=== PATIENT | male | born 1960 | race African-American/Black ===

== ENCOUNTER 2022-01-15 07:38 | Inpatient (IN) | payer MEDICARE, MEDICAID ==
[~2022-01-15] VITALS: Ht 185.4 cm; Wt 113.6 kg
[2022-01-15] VITALS (10 sets, daily range): BP systolic 133–194; BP diastolic 81–95
[~2022-01-15 07:38] MED LIST: LISI10TA27 PO
[2022-01-15 08:34] LABS: BASOPHILS # (AUTO) 0.1 X10'3 (0-0.2); BASOPHILS % (AUTO) 0.8 % (0-1); EOSINOPHILS % (AUTO) 0.3 % (0-6); HEMATOCRIT 43.5 % (42.0-52.0); HEMOGLOBIN 14.3 g/dl (14.0-17.9); LYMPHOCYTES # (AUTO) 1.4 X10'3 (1.1-4.8); LYMPHOCYTES % (AUTO) 13.2 % (21-51); MEAN CORPUSCULAR HGB CONC 32.9 g/dL (33.0-36.5); MEAN CORPUSCULAR VOLUME 82.3 FL (78-98); MEAN PLATELET VOLUME 8.6 FL (7.4-10.4); MONOCYTES # (AUTO) 0.8 X10'3 (0-0.9); MONOCYTES % (AUTO) 7.8 % (2-12); NEUTROPHILS # (AUTO) 8.4 X10'3 (1.8-7.7); NEUTROPHILS % (AUTO) 77.9 % (42-75); PLATELET COUNT 326 X10'3 (140-440); RED BLOOD COUNT 5.29 X10'6 (4.70-6.10); RED CELL DISTRIBUTION WIDTH 14.9 % (11.5-14.5); WHITE BLOOD COUNT 10.8 X10'3 (4.5-11.0)
[2022-01-15 08:47] LABS: ALANINE AMINOTRANSFERASE 35 U/L (12-78); ALBUMIN 3.9 G/DL (3.4-5.0); ALBUMIN/GLOBULIN RATIO 0.8 (1.1-1.5); ALKALINE PHOSPHATASE 191 IU/L (46-116); ANION GAP 10 (8-16); ASPARTATE AMINO TRANSFERASE 72 U/L (10-37); BILIRUBIN,TOTAL 0.6 MG/DL (0.1-1.0); BLOOD UREA NITROGEN 12 MG/DL (7-18); BUN/CREATININE RATIO 10.1 (5.4-32.0); CALCIUM 9.3 MG/DL (8.5-10.1); CHLORIDE 100 MMOL/L (99-107); CREATININE 1.19 MG/DL (0.60-1.10); GLUCOSE 153 MG/DL (70-104); POTASSIUM 4.4 MMOL/L (3.5-5.1); SODIUM 136 MMOL/L (135-145); TOTAL CARBON DIOXIDE 26.1 MMOL/L (24-32); TOTAL PROTEIN 8.7 G/DL (6.4-8.2); eGFR 75 ML/MIN
[2022-01-15] MEDS ORDERED: nitroGLYCERIN-Tridil 50MG/D5W 250 ML IV PRN ×2 (08:55→08:59)
[2022-01-15] MEDS ORDERED: aspirin 81mg tab.chew PO ONE (08:55)
[2022-01-15] MEDS ORDERED: heparin 10,000 units/1 ML INJ IV PRN (10:45)
[2022-01-15] MEDS ORDERED: heparin 25,000 UNIT/250ml bag 250 ML IV SCH (10:45)
[2022-01-15] MEDS ORDERED: heparin 10,000 units/1 ML INJ IV ONE ×2 (10:45→10:50)
[2022-01-15] MEDS ORDERED: potassium Cl 20 mEq SR tablet PO PRN ×2 (10:50)
[2022-01-15] MEDS ORDERED: potassium CL 10mEq/100ml bag 100 ML IV PRN (10:50)
[2022-01-15] MEDS ORDERED: normal saline 1000ml 1,000 ML IV SCH (10:50)
[2022-01-15] MEDS ORDERED: magnesium 2GM in 50ml NS 50 ML IV PRN (10:50)
[2022-01-15] MEDS ORDERED: ondansetron/PF 4mg/2ml inj IV PRN ×2 (10:50→12:40)
[2022-01-15] MEDS ORDERED: acetaminophen 325mg tablet PO PRN (10:50)
[2022-01-15] MEDS ORDERED: magnesium 4gm in 100ml NS 100 ML IV PRN (10:50)
[2022-01-15] MEDS ORDERED: magnesium hydroxide 30ml (MOM) UD suspension PO PRN (10:50)
[2022-01-15] MEDS ORDERED: magnesium Cl slow-release 64mg tablet PO PRN (10:50)
[2022-01-15] MEDS ORDERED: LIDOcaine 1% (10mg/ml)w/preservative inj. 20ml MDV ONE (11:05)
[2022-01-15] MEDS ORDERED: iohexol 350 MG/ML 50ML vial IV ONE ×2 (11:05→11:34)
[2022-01-15] MEDS ORDERED: iohexol 350MG/ML 100ml bottle IV ONE (11:05)
[2022-01-15] MEDS ORDERED: midazolam 1 mg/ML 2ml injection ONE (11:05)
[2022-01-15] MEDS ORDERED: fentaNYL/PF 50MCG/1 ML 2ML syringe ONE (11:05)
[2022-01-15 11:12] LABS: MAGNESIUM 1.9 MG/DL (1.5-2.4)
[2022-01-15 11:26] LABS: APTT 30 SECONDS (22-32)
[2022-01-15] MEDS ORDERED: proCHLORperazine 10 MG/2 ml inj IV PRN (12:40)
[2022-01-15] MEDS ORDERED: nitroGLYCERIN 0.4mg SUBLingual tab SL PRN (12:40)
[2022-01-15] MEDS ORDERED: OXAZEpam 15mg capsule PO PRN (12:40)
[2022-01-15] MEDS ORDERED: HYDROcodone/acetaminophen 5mg/325mg tablet PO PRN (12:40)
--- NOTE | 2022-01-15 12:45 | NUR ---
Report received from [employer] [employer], patient admitted to room 3017B from ED/[facility]. Patient AXOX3 no distress noted. Lung sound clear to auscultate all lobes bilateral, RA. abd soft non-tender, bowel sound active all lobes. animal laboratory technician post procedure, educated patient to lie flat on bed to prevent bleeding, patient verbalized understanding. pressure drsg to right groin dry and intact. paient c/o back pain will check the EMAR for prn pain medications. Call light within reach, safety measure maintain.
[2022-01-15] MEDS ORDERED: amLODIPine 5mg tablet PO ONE (12:55)
[2022-01-15] MEDS ORDERED: AMLO10TA13 PO (12:59)
[2022-01-15] MEDS ORDERED: HYDR-3972 PO (12:59)
[2022-01-15] MEDS ORDERED: CYCL10TA26 PO (12:59)
[2022-01-15] MEDS ORDERED: ZOLP5TAB8 PO (12:59)
[2022-01-15] MEDS ORDERED: CLON0.1T PO (12:59)
[2022-01-15] MEDS ORDERED: PROM25TA14 PO (12:59)
[2022-01-15] MEDS ORDERED: TEST200V33 IM (12:59)
[2022-01-15] MEDS ORDERED: METH-603 PO (12:59)
[2022-01-15] MEDS ORDERED: HYDROcodone/acetaminophen 10/325mg tab PO PRN (13:20)
[2022-01-15] MEDS: clopidogrel 75mg tablet PO SCH (13:43)
[2022-01-15] MEDS: HYDROcodone/acetaminophen 10/325mg tab PO PRN ×2 (13:45→21:17)
[2022-01-15] MEDS: losartan 50mg tablet PO SCH (13:46)
--- NOTE | 2022-01-15 14:27 | NUR ---
Dr. Munguia notified of patient troponin level 4388.
--- NOTE | 2022-01-15 15:48 | NUR ---
patient non compliant, attempted to get out of bed several times, patient re educated by several nursing staff of bleeding risk and need to lie flat for 2-6 hours. educated patient to used call light for escrow assistant.
[2022-01-15] MEDS: cyclobenzaprine 10mg tablet PO SCH ×2 (17:27→23:48)
--- NOTE | 2022-01-15 17:45 | NUR ---
Patient continue on nitro drip, well tolerated. denies any chest pain at time.
--- NOTE | 2022-01-15 18:58 | NUR ---
Received pt on Nitroglycerin drip, BP stable. Noted Heparin orders still on JAN, will sent a message to call center rn to d/c orders .
[2022-01-15] MEDS: cloNIDine 0.1 mg tablet PO SCH (19:48)
[2022-01-15] MEDS: docusate sod 100mg capsule PO SCH (19:48)
[2022-01-15] MEDS: K and/or MAG REPLACEMENT MC SCH (19:49)
[2022-01-15] MEDS: HYDROmorphone/PF 0.2 MG/ML SYRINGE IV PRN (20:50)
[2022-01-15] MEDS ORDERED: hydrALAZINE 25 MG tablet PO PRN (21:50)
[2022-01-15] MEDS: mag hydrox/Alum hydrox/simeth 30ml oral suspension PO PRN (21:56)
[2022-01-16] VITALS (11 sets, daily range): BP systolic 126–162; BP diastolic 74–103
[2022-01-16] MEDS: HYDROmorphone/PF 0.2 MG/ML SYRINGE IV PRN ×2 (00:41→06:06)
[2022-01-16 06:37] LABS: BASOPHILS % (AUTO) 0.3 % (0-1); EOSINOPHILS % (AUTO) 0 % (0-6); HEMATOCRIT 40.9 % (42.0-52.0); HEMOGLOBIN 13.3 g/dl (14.0-17.9); LYMPHOCYTES # (AUTO) 1.4 X10'3 (1.1-4.8); LYMPHOCYTES % (AUTO) 10.1 % (21-51); MEAN CORPUSCULAR HEMOGLOBIN 26.8 PG (27.0-31.0); MEAN CORPUSCULAR HGB CONC 32.4 g/dL (33.0-36.5); MEAN CORPUSCULAR VOLUME 82.7 FL (78-98); MEAN PLATELET VOLUME 8.9 FL (7.4-10.4); MONOCYTES # (AUTO) 1.4 X10'3 (0-0.9); MONOCYTES % (AUTO) 10.6 % (2-12); NEUTROPHILS # (AUTO) 10.7 X10'3 (1.8-7.7); PLATELET COUNT 297 X10'3 (140-440); RED BLOOD COUNT 4.95 X10'6 (4.70-6.10); RED CELL DISTRIBUTION WIDTH 14.8 % (11.5-14.5); WHITE BLOOD COUNT 13.5 X10'3 (4.5-11.0)
--- NOTE | 2022-01-16 06:39 | NUR ---
Pt continued to complain of chest pain though of the night. 0000 Dr Savage notified of his complaints, she said no other pain medicine can be added. Also informed her of the high BP of 194/95 HR 63, received order of hydralazine. WCTM
[2022-01-16 06:41] LABS: ALBUMIN 3.3 G/DL (3.4-5.0); ANION GAP 9 (8-16); BLOOD UREA NITROGEN 11 MG/DL (7-18); BUN/CREATININE RATIO 10.3 (5.4-32.0); CHLORIDE 100 MMOL/L (99-107); CREATININE 1.07 MG/DL (0.60-1.10); GLUCOSE 127 MG/DL (70-104); POTASSIUM 4.2 MMOL/L (3.5-5.1); SODIUM 135 MMOL/L (135-145); TOTAL CARBON DIOXIDE 25.9 MMOL/L (24-32); eGFR 84 ML/MIN
--- NOTE | 2022-01-16 06:44 | NUR ---
Dr Ezra redding regarding patient in room 3015A Mr Alexei Orosco have X1 episode of Afib RVR. during report patient c/o epigastric pain and used to take Dexilant. Vitals documented. Patient in bed with eyes closed, no distress noted at time, nitroglycerin drip continue.
[2022-01-16] MEDS: clopidogrel 75mg tablet PO SCH (07:58)
[2022-01-16] MEDS: docusate sod 100mg capsule PO SCH ×2 (07:58→19:19)
[2022-01-16] MEDS: losartan 50mg tablet PO SCH (07:59)
[2022-01-16] MEDS ORDERED: non-formulary drug (Amlodipine Besylate 1 TAB) PO SCH (08:00)
[2022-01-16] MEDS: amLODIPine 5mg tablet PO SCH (08:00)
[2022-01-16] MEDS: atorvastatin 20mg tablet PO SCH (08:00)
[2022-01-16] MEDS: K and/or MAG REPLACEMENT MC SCH ×2 (08:00→20:00)
[2022-01-16] MEDS: aspirin 81mg, enteric-coated 1 TAB TABLET.DR PO SCH (08:01)
[2022-01-16] MEDS: cyclobenzaprine 10mg tablet PO SCH ×3 (08:01→23:17)
[2022-01-16] MEDS: methadone 10mg tablet PO SCH (08:01)
[2022-01-16] MEDS: mag hydrox/Alum hydrox/simeth 30ml oral suspension PO PRN (08:05)
[2022-01-16] MEDS ORDERED: heparin 10,000 units/1 ML INJ IV ONE (09:20)
--- NOTE | 2022-01-16 09:26 | NUR ---
NEW ORDER RECEIVED FROM DR. HIRSCH TO START PATIENT ON HEPARIN DRIP, DECREASE NITROGLYCERIN DRIP TO 5 MCG.
[2022-01-16] MEDS: heparin 25,000 UNIT/250ml bag 250 ML IV SCH ×2 (10:39→23:55)
--- NOTE | 2022-01-16 13:10 | NUR ---
spoke to Dr. Munguia regarding patient HR went up to 190's and fluctuated to 50's, patient denies any discomfort at time, MD will follow up.
[2022-01-16] MEDS ORDERED: ondansetron 4mg rapidly disintigrating tab PO PRN (13:35)
[2022-01-16] MEDS ORDERED: amiodarone 150mg/dext, iso-os 100 ML IV ONE (13:50)
[2022-01-16] MEDS ORDERED: metoprolol tartrate 1mg/ml inj IV ONE (14:00)
--- NOTE | 2022-01-16 14:00 | NUR ---
new order received from Dr Munguia for nitroglycerine patch 0.4 mg, new order noted for amiodarone drip, nitroglycerine stop.
[2022-01-16] MEDS: amiodarone/D5 360MG/200ML BAG 200 ML IV SCH ×3 (16:06→22:00)
--- NOTE | 2022-01-16 17:50 | NUR ---
Patient continue on heparin and amiodarone drip, denies any discomfort at time. call light within reach.
[2022-01-16] MEDS: cloNIDine 0.1 mg tablet PO SCH (20:36)
[2022-01-16] MEDS: heparin 10,000 units/1 ML INJ IV PRN (23:51)
--- NOTE | 2022-01-17 00:59 | NUR ---
61-yo male, admitted 01/15/2022, day 2 of hospitalization, admitting DX NSTEMI, full code, allergies to Codeine. Pt came to the emergency room with a complaint of chest pain, patient says pain started 3 days ago and present off and on on the left side of the chest, patient says he has shortness of breath from last 2 days, patient also complains of nausea and vomiting associated with it. Patient evaluated in the ER and had elevated troponin of 4791, Dr. 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 Patient has a history of high blood pressure and he is noncompliant with taking his medications for blood pressure as per patient. Patient has no abdominal pain no diarrhea no dysuria no polyuria no hematuria Currently, Pt in in PCU room 3017-B, Afebrile, AAO times 4, moves all extremities, follows all commands. HR 62, SR / AFIB at times, BP 128/88, generalized +1edema, good pulses. Amiodarone infusing at .5mg/min (16.16 ml's hr), and Cardiac heparin infusing at 1100 units/hr (11 ml's/hr). PTT closely monitored q 6 hours. IVF infusing via Right forearm and left forearm. RR 16-20 non labored, PO 98% RA, Breath sounds, diminished, equal symmetrical. Hypoactive bowel sounds, soft, rounds, obese abdomen, Cardiac diet well tolerated. No BM. ?o epigastric discomfort for time to time. Voids freely, skin intact. Pt instructed to call for asst prior to getting up, pt states he understands, call light in patients reach. Pt remains safe, continue to monitor. Addendum: 01/17/22 at 0227 by Suleiman Arredondo RN ingot buggy operator #[id number]
[2022-01-17 02:00] VITALS: BP 145/82
[2022-01-17] MEDS: amiodarone/D5 360MG/200ML BAG 200 ML IV SCH ×3 (05:14→20:00)
[2022-01-17 06:00] VITALS: BP 141/77
[2022-01-17 06:18] LABS: BASOPHILS # (AUTO) 0.1 X10'3 (0-0.2); BASOPHILS % (AUTO) 0.8 % (0-1); EOSINOPHILS % (AUTO) 0.4 % (0-6); HEMATOCRIT 40.7 % (42.0-52.0); HEMOGLOBIN 13.4 g/dl (14.0-17.9); LYMPHOCYTES # (AUTO) 2.1 X10'3 (1.1-4.8); LYMPHOCYTES % (AUTO) 19.8 % (21-51); MEAN CORPUSCULAR HEMOGLOBIN 27.3 PG (27.0-31.0); MEAN CORPUSCULAR VOLUME 82.6 FL (78-98); MEAN PLATELET VOLUME 9.3 FL (7.4-10.4); MONOCYTES # (AUTO) 1.1 X10'3 (0-0.9); MONOCYTES % (AUTO) 10.5 % (2-12); NEUTROPHILS # (AUTO) 7.2 X10'3 (1.8-7.7); NEUTROPHILS % (AUTO) 68.5 % (42-75); PLATELET COUNT 307 X10'3 (140-440); RED BLOOD COUNT 4.93 X10'6 (4.70-6.10); RED CELL DISTRIBUTION WIDTH 14.6 % (11.5-14.5); WHITE BLOOD COUNT 10.5 X10'3 (4.5-11.0)
[2022-01-17 06:25] LABS: ALBUMIN 3.1 G/DL (3.4-5.0); ANION GAP 8 (8-16); BLOOD UREA NITROGEN 16 MG/DL (7-18); BUN/CREATININE RATIO 13.4 (5.4-32.0); CALCIUM 9.1 MG/DL (8.5-10.1); CHLORIDE 101 MMOL/L (99-107); CREATININE 1.19 MG/DL (0.60-1.10); GLUCOSE 101 MG/DL (70-104); POTASSIUM 3.9 MMOL/L (3.5-5.1); SODIUM 134 MMOL/L (135-145); TOTAL CARBON DIOXIDE 25.4 MMOL/L (24-32); eGFR 75 ML/MIN
[2022-01-17] MEDS: heparin 25,000 UNIT/250ml bag 250 ML IV SCH (08:20)
[2022-01-17] MEDS: heparin 10,000 units/1 ML INJ IV PRN (08:22)
[2022-01-17] MEDS: clopidogrel 75mg tablet PO SCH (08:24)
[2022-01-17] MEDS: methadone 10mg tablet PO SCH (08:24)
[2022-01-17] MEDS: docusate sod 100mg capsule PO SCH ×2 (08:24→20:04)
[2022-01-17] MEDS: losartan 50mg tablet PO SCH (08:25)
[2022-01-17] MEDS: atorvastatin 20mg tablet PO SCH (08:25)
[2022-01-17] MEDS: aspirin 81mg, enteric-coated 1 TAB TABLET.DR PO SCH (08:25)
[2022-01-17] MEDS: cyclobenzaprine 10mg tablet PO SCH ×2 (08:25→17:52)
[2022-01-17] MEDS: amLODIPine 5mg tablet PO SCH (08:25)
[2022-01-17] MEDS: nitroGLYCERIN 0.4mg/hour patch TD SCH (08:27)
[2022-01-17 11:00] VITALS: BP 148/79
[2022-01-17 14:27] LABS: CHOL/HDL RATIO 4.2 (0.00-4.99); CHOLESTEROL 129 MG/DL (0-200); HDL CHOLESTEROL 31 MG/DL (35-60); LDL CHOLESTEROL 76 MG/DL (50-100); TRIGLYCERIDES 90 MG/DL (20-135)
[2022-01-17 15:00] VITALS: BP 155/84
[2022-01-17 18:00] VITALS: BP 146/85
--- NOTE | 2022-01-17 18:30 | NUR ---
Pt sitting at the edge of bed eating dinner, denied any discomfort, medication line detached from heplock. Plan of care verbalized to pt.pt instructed to notify staff if feeling his heart beats fast., continue to monitor pt's cardiac status.
[2022-01-17] MEDS: K and/or MAG REPLACEMENT MC SCH (20:00)
[2022-01-17] MEDS: cloNIDine 0.1 mg tablet PO SCH (20:04)
[2022-01-17] MEDS: amiodarone 200mg tablet PO SCH (20:04)
[2022-01-17 22:00] VITALS: BP 141/78
[2022-01-18] MEDS: cyclobenzaprine 10mg tablet PO SCH ×2 (00:06→08:04)
[2022-01-18 02:00] VITALS: BP 128/85
[2022-01-18] MEDS: amiodarone/D5 360MG/200ML BAG 200 ML IV SCH ×2 (02:00→08:00)
[2022-01-18 06:00] VITALS: BP 129/69
[2022-01-18 06:23] LABS: ALBUMIN 2.9 G/DL (3.4-5.0); ANION GAP 8 (8-16); BLOOD UREA NITROGEN 21 MG/DL (7-18); BUN/CREATININE RATIO 15.8 (5.4-32.0); CHLORIDE 102 MMOL/L (99-107); CREATININE 1.33 MG/DL (0.60-1.10); GLUCOSE 110 MG/DL (70-104); SODIUM 136 MMOL/L (135-145); TOTAL CARBON DIOXIDE 26.2 MMOL/L (24-32); eGFR 66 ML/MIN
[2022-01-18 06:37] LABS: BASOPHILS # (AUTO) 0.1 X10'3 (0-0.2); BASOPHILS % (AUTO) 0.7 % (0-1); EOSINOPHILS # (AUTO) 0.2 X10'3 (0-0.9); EOSINOPHILS % (AUTO) 2.1 % (0-6); HEMATOCRIT 39.8 % (42.0-52.0); HEMOGLOBIN 13.2 g/dl (14.0-17.9); LYMPHOCYTES # (AUTO) 2.2 X10'3 (1.1-4.8); MEAN CORPUSCULAR HEMOGLOBIN 27.5 PG (27.0-31.0); MEAN CORPUSCULAR HGB CONC 33.2 g/dL (33.0-36.5); MEAN CORPUSCULAR VOLUME 82.8 FL (78-98); MEAN PLATELET VOLUME 8.9 FL (7.4-10.4); MONOCYTES # (AUTO) 0.8 X10'3 (0-0.9); MONOCYTES % (AUTO) 9.6 % (2-12); NEUTROPHILS % (AUTO) 60.6 % (42-75); PLATELET COUNT 320 X10'3 (140-440); RED BLOOD COUNT 4.81 X10'6 (4.70-6.10); RED CELL DISTRIBUTION WIDTH 14.8 % (11.5-14.5); WHITE BLOOD COUNT 8.3 X10'3 (4.5-11.0)
[2022-01-18] MEDS ORDERED: apixaban 5mg tablet PO SCH (08:00)
[2022-01-18] MEDS: mag hydrox/Alum hydrox/simeth 30ml oral suspension PO PRN (08:03)
[2022-01-18] MEDS: methadone 10mg tablet PO SCH (08:04)
[2022-01-18] MEDS: amiodarone 200mg tablet PO SCH (08:04)
[2022-01-18] MEDS: nitroGLYCERIN 0.4mg/hour patch TD SCH (08:04)
[2022-01-18] MEDS: aspirin 81mg, enteric-coated 1 TAB TABLET.DR PO SCH (08:04)
[2022-01-18] MEDS: amLODIPine 5mg tablet PO SCH (08:05)
[2022-01-18] MEDS: clopidogrel 75mg tablet PO SCH (08:05)
[2022-01-18] MEDS: docusate sod 100mg capsule PO SCH (08:05)
[2022-01-18] MEDS: losartan 50mg tablet PO SCH (08:06)
[2022-01-18] MEDS: atorvastatin 20mg tablet PO SCH (08:06)
[2022-01-18] MEDS ORDERED: CARV3.12 PO ×2 (10:48)
[2022-01-18] MEDS ORDERED: AMIO200T67 PO (10:48)
[2022-01-18] MEDS ORDERED: CLOP75TA34 PO (10:48)
[2022-01-18] MEDS ORDERED: LOSA50TA64 PO (10:48)
[2022-01-18] MEDS ORDERED: ATOR20TA66 PO (10:48)
[2022-01-18 11:00] VITALS: BP 123/74
--- NOTE | 2022-01-18 11:53 | NUR ---
PAGER ID: [phone] MESSAGE: CAROLINA BLANCO [id number] MED REC, SYSTEM SAYS THERE'S CONFLICT. THANKS
[2022-01-18] MEDS ORDERED: APIX5TAB3 PO (12:47)
== END 2022-01-18 13:06 | disposition home or self-care (01) | DRG 282 ==
LOC: ER 07:38 → ED HOLD 10:49 → PCU 3S 12:15
PROVIDERS: ADMIT Family Medicine; ATTEND Family Medicine
PROC: 4A023N7 Measurement of Cardiac Sampling and Pressure, Left Heart, Percutaneous Approach (ICD-10-PCS; principal; 2022-01-15)
PROC: B2111ZZ Fluoroscopy of Multiple Coronary Arteries using Low Osmolar Contrast (ICD-10-PCS; 2022-01-15)
PROC: B2151ZZ Fluoroscopy of Left Heart using Low Osmolar Contrast (ICD-10-PCS; 2022-01-15)
PROC: B3101ZZ Fluoroscopy of Thoracic Aorta using Low Osmolar Contrast (ICD-10-PCS; 2022-01-15)
DX: I21.4 Non-ST elevation (NSTEMI) myocardial infarction (principal); I48.0 Paroxysmal atrial fibrillation; F17.210 Nicotine dependence, cigarettes, uncomplicated; G89.29 Other chronic pain; Z20.822 Contact with and (suspected) exposure to COVID-19; I11.9 Hypertensive heart disease without heart failure; J44.9 Chronic obstructive pulmonary disease, unspecified; I20.9 Angina pectoris, unspecified; I45.10 Unspecified right bundle-branch block; M54.50 Low back pain, unspecified; Z91.14 Patient's other noncompliance with medication regimen; Z88.5 Allergy status to narcotic agent; Z79.899 Other long term (current) drug therapy; Z79.82 Long term (current) use of aspirin; Z71.6 Tobacco abuse counseling
CPT/HCPCS: 36415; 71045; 80048; 80053; 80061; 83735; 83880; 84443; 84484; 85025; 85610; 85730; 87081; 87635; 93005; 93306; 93458; 93567; 96365; 99152; 99153; 99285; A4620; A6258; C1760; C1769; G0378; J0282; J1170; J1644; J2250; J3010; J3490; J7030; Q9967

== ENCOUNTER 2022-07-22 11:24 | Day surgery (SDC) | payer MEDICARE, MEDICAID ==
[~2022-07-22] VITALS: Ht 185.4 cm; Wt 93.8 kg
[~2022-07-22 11:24] MED LIST changes: +AMIO200T67 PO; +AMLO10TA13 PO; +APIX5TAB3 PO; +ATOR20TA66 PO; +CARV3.12 PO; +CLON0.1T PO; +CLOP75TA34 PO; +CYCL10TA26 PO; -LISI10TA27 PO; +LOSA50TA64 PO; +METH-603 PO; +PROM25TA14 PO; +ZOLP5TAB8 PO
[2022-07-22 12:02] VITALS: BP 153/90
[2022-07-22] MEDS ORDERED: normal saline 1000ml 1,000 ML IV PRN (12:10)
[2022-07-22] MEDS ORDERED: LOSA25TA96 PO (12:39)
[2022-07-22] MEDS ORDERED: DEXL60CA3 PO (12:39)
[2022-07-22] MEDS ORDERED: METF-900 PO (12:39)
[2022-07-22] MEDS ORDERED: CYCL-1 PO (12:39)
[2022-07-22] MEDS ORDERED: HYDR-3972 PO (12:39)
[2022-07-22] MEDS ORDERED: testosterone gel (12:39)
[2022-07-22] MEDS ORDERED: CARV3.122 PO (12:39)
[2022-07-22] MEDS ORDERED: APIX5TAB3 PO (12:39)
[2022-07-22] MEDS ORDERED: ATOR20TA PO (12:39)
[2022-07-22] MEDS ORDERED: CLON0.1T2 PO (12:39)
[2022-07-22] MEDS ORDERED: PROM25TA14 PO (12:39)
[2022-07-22] MEDS ORDERED: AMIO200T61 PO (12:39)
[2022-07-22] MEDS ORDERED: normal saline 1000ml 1,000 ML IV SCH (13:15)
[2022-07-22] MEDS ORDERED: midazolam 1 mg/ML 2ml injection ONE (13:26)
[2022-07-22] MEDS ORDERED: LIDOcaine 1%/PF 5ML 10 MG/ML VIAL ONE ×2 (13:26)
[2022-07-22] MEDS ORDERED: heparin sodium, porcine/PF 100unit/ml 5ML syringe ONE (13:26)
[2022-07-22] MEDS ORDERED: fentaNYL/PF 50MCG/1 ML 2ML syringe ONE (13:26)
[2022-07-22 14:34] VITALS: BP 166/96
[2022-07-22 14:49] VITALS: BP 153/90
[2022-07-22 15:04] VITALS: BP 148/89
[2022-07-22 15:19] VITALS: BP 171/92
[2022-07-22 15:34] VITALS: BP 155/92
== END 2022-07-22 15:45 | disposition home or self-care (01) ==
LOC: SSTAY O 11:24
PROVIDERS: ATTEND Radiology Diagnostic Radiology
DX: C22.0 Liver cell carcinoma (principal); Z79.899 Other long term (current) drug therapy; K70.10 Alcoholic hepatitis without ascites; K74.60 Unspecified cirrhosis of liver; I25.10 Atherosclerotic heart disease of native coronary artery without angina pectoris; E78.00 Pure hypercholesterolemia, unspecified; I10 Essential (primary) hypertension; E11.9 Type 2 diabetes mellitus without complications; F32.9 Major depressive disorder, single episode, unspecified; I25.2 Old myocardial infarction; Z88.6 Allergy status to analgesic agent; Z98.890 Other specified postprocedural states
CPT/HCPCS: 36561; 76937; 77001; 82948; 99152; 99153; C1769; C1788; C1894; J1642; J2250; J3010; J3490; J7030; A4620